=== PATIENT | female | born 1940 | race Caucasian/White ===

== ENCOUNTER 2020-01-18 20:16 | Emergency (ER) | payer MEDICARE ==
[2020-01-18] MEDS ORDERED: Sodium Chloride 0.9% 10 ML Syringe FLUSH PRN (20:27)
[2020-01-18] MEDS ORDERED: Aspirin 81 MG Tab.Chew PO ONE (20:27)
--- NOTE | 2020-01-18 20:48 | EDM.PDOC ---
ED HPI GENERAL MEDICAL PROBLEM - General Chief Complaint: Chest Pain Stated Complaint: CHEST PAIN Time Seen by Provider: 01/18/20 20:22 Source of Information: Reports: Patient History Limitations: Reports: No Limitations - History of Present Illness INITIAL COMMENTS - FREE TEXT/NARRATIVE: Patient is an 79-year-old female presenting to the emergency department with complaints of left-sided chest pain. Patient points to below her left breast when asked to localizes the pain. She states the symptoms started around 11 AM this morning. Since that time, the pain comes and goes. She complains of some shortness of breath with the pain, however she is also intermittently short of breath at baseline. She has tenderness to her chest wall when the pain is present. She denies any nausea, vomiting, or diaphoresis associated with the pain. Patient has a history of hypertension being treated with lisinopril but has no other cardiac history Patient is from [place] and visiting family locally for the next month. She states she is been under a lot of stress lately related to her dying. She denies any fever, chills, abdominal pain, nausea vomiting, or diarrhea. She has had no known sick contacts. Left Chest Pain Score (Numeric/FACES): 6 - Related Data Allergies Allergy/AdvReac Type Severity Reaction Status Date / Time No Known Allergies Allergy Verified 01/18/20 20:26 Home Meds: Home Meds Acarbose 100 mg PO DAILY 01/18/20 [History] Gabapentin [Neurontin] 300 mg PO DAILY 01/18/20 [History] Glimepiride 1 mg PO DAILY 01/18/20 [History] Lactobacillus Rhamnosus GG [Culturelle] 1 cap PO DAILY 01/18/20 [History] Metoprolol Tartrate [Lopressor] 50 mg PO DAILY 01/18/20 [History] amLODIPine Besylate [Amlodipine Besylate] 10 mg PO DAILY 01/18/20 [History] lisinopriL [Lisinopril] 40 mg PO DAILY 01/18/20 [History] metFORMIN [Glucophage] 500 mg PO DAILY 01/18/20 [History] Past Medical History HEENT History: Reports: Hard of Hearing Cardiovascular History: Reports: Hypertension Respiratory History: Reports: None 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: Neurological History: Reports: None Psychiatric History: Reports: None Endocrine/Metabolic History: Reports: Diabetes, Type II, Obesity/BMI 30+ Hematologic History: Reports: None Immunologic History: Reports: None Oncologic (Cancer) History: Reports: None Dermatologic History: Reports: None - Infectious Disease History Infectious Disease History: Reports: None - Past Surgical History HEENT Surgical History: Reports: Tonsillectomy GI Surgical History: Reports: Cholecystectomy Female Surgical History: Reports: Hysterectomy Musculoskeletal Surgical History: Reports: Hip Replacement Social & Family History - Tobacco Use Smoking Status *Q: Never Smoker - Caffeine Use Caffeine Use: Reports: Coffee, Soda, Tea - Recreational Drug Use Recreational Drug Use: No ED ROS GENERAL - Review of Systems Review Of Systems: See Below Constitutional: Reports: No Symptoms. Denies: Fever, Chills, Weakness HEENT: Reports: No Symptoms Respiratory: Reports: Shortness of Breath. Denies: Wheezing, Cough Cardiovascular: Reports: Chest Pain. Denies: Dyspnea on Exertion, Lightheadedness, Palpitations, Syncope Endocrine: Reports: No Symptoms GI/Abdominal: Reports: No Symptoms. Denies: Abdominal Pain, Diarrhea, Nausea, Vomiting : Reports: No Symptoms Musculoskeletal: Reports: Other (chest wall tenderness) Skin: Reports: No Symptoms Neurological: Reports: No Symptoms Psychiatric: Reports: No Symptoms Hematologic/Lymphatic: Reports: No Symptoms Immunologic: Reports: No Symptoms ED EXAM, GENERAL - Physical Exam Exam: See Below General Appearance: Alert, WD/WN, No Apparent Distress Respiratory/Chest: No Respiratory Distress, Lungs Clear, Normal Breath Sounds, No Accessory Muscle Use, Chest Non-Tender Cardiovascular: Normal Peripheral Pulses, Regular Rate, Rhythm, No Edema, No Gallop, No JVD, No Murmur, No Rub GI/Abdominal: Normal Bowel Sounds, Soft, Non-Tender, No Organomegaly, No Distention, No Abnormal Bruit, No Mass Neurological: Alert, Oriented, CN II-XII Intact, Normal Cognition, Normal Gait, Normal Reflexes, No Motor/Sensory Deficits Psychiatric: Normal Affect, Normal Mood Skin Exam: Warm, Dry, Intact, Normal Color, No Rash EKG INTERPRETATION EKG Date: 01/18/20 Time: 20:22 Rhythm: NSR Rate (Beats/Min): 66 [place]: LAD-Left [place] Deviation P-Wave: Present QRS: Normal ST-T: Normal QT: Normal Comparison: NA - No Prior EKG Course - Vital Signs Last Recorded V/S: Last Vital Signs Temp 96.8 F L 01/18/20 20:22 Pulse 72 01/18/20 20:22 Resp 16 01/18/20 20:22 BP 153/111 H 01/18/20 20:22 Pulse Ox 98 01/18/20 20:22 - Orders/Labs/Meds Labs: Laboratory Tests 01/18/20 01/18/20 01/18/20 Range/Units 20:30 20:30 20:30 WBC 8.21 (3.98-10.04) K/mm3 RBC 4.99 (3.98-5.22) M/mm3 Hgb 14.9 (11.2-15.7) gm/dl Hct 46.5 H (34.1-44.9) % MCV 93.2 (79.4-94.8) fl MCH 29.9 (25.6-32.2) pg MCHC 32.0 L (32.2-35.5) g/dl RDW Std Deviation 46.1 (36.4-46.3) fL Plt Count 271 (182-369) K/mm3 MPV 10.0 (9.4-12.3) fl Neut % (Auto) 51.8 (34.0-71.1) % Lymph % (Auto) 35.9 (19.3-51.7) % [place] % (Auto) 8.6 (4.7-12.5) % Eos % (Auto) 2.4 (0.7-5.8) Baso % (Auto) 0.9 (0.1-1.2) % Neut # (Auto) 4.25 (1.56-6.13) K/mm3 Lymph # (Auto) 2.95 (1.18-3.74) K/mm3 [place] # (Auto) 0.71 H (0.24-0.36) K/mm3 Eos # (Auto) 0.20 (0.04-0.36) K/mm3 Baso # (Auto) 0.07 (0.01-0.08) K/mm3 D-Dimer, Quantitative 0.65 H (0.19-0.50) mg/L Sodium 141 (136-145) mEq/L Potassium 4.3 (3.5-5.1) mEq/L Chloride 104 (98-107) mEq/L Carbon Dioxide 32 (21-32) mEq/L Anion Gap 9.3 (5-15) BUN 22 H (7-18) mg/dL Creatinine 0.9 (0.55-1.02) mg/dL Est Cr Clr Drug Dosing 35.21 mL/min Estimated GFR (MDRD) > 60 (>60) mL/min BUN/Creatinine Ratio 24.4 H (14-18) Glucose 100 (83-115) mg/dL Calcium 9.9 (8.5-10.1) mg/dL Magnesium 2.0 (1.8-2.4) mg/dl Total Bilirubin 0.4 (0.2-1.0) mg/dL AST 22 (15-37) U/L ALT 55 (14-59) U/L Alkaline Phosphatase 75 (46-116) U/L Troponin I < 0.017 (0.00-0.056) ng/mL C-Reactive Protein 0.5 (<1.0) mg/dL Total Protein 7.3 (6.4-8.2) g/dl Albumin 3.8 (3.4-5.0) g/dl Globulin 3.5 gm/dL Albumin/Globulin Ratio 1.1 (1-2) Meds: Medications Discontinued Medications Generic Name Dose Route Start Last Admin Trade Name Freq PRN Reason Stop Dose Admin Aspirin 324 mg 01/18/20 20:27 01/18/20 20:37 Aspirin PO 01/18/20 20:28 324 mg ONETIME ONE Administration Sodium Chloride 10 ml 01/18/20 20:27 01/18/20 20:37 Saline Flush FLUSH 10 ml ASDIRECTED PRN Administration Keep Vein Open - Re-Assessments/Exams Free Text/Narrative Re-Assessment/Exam: Patient is an 79-year-old female presenting to the emergency department tonight with complaints of intermittent left-sided chest pain that began around 11 AM this morning. She states that the pain comes and goes. On exam, she is tender to palpation throughout the left side of her chest wall. Lung sounds are clear to auscultation. I have ordered a CBC, CMP, d-dimer, troponin, EKG, 2 view chest x-ray, and aspirin 324 mg p.o. 01/18/20 21:18 Hematology was grossly unremarkable. D-dimer was minimally elevated at 0.65, however this would be a normal age variant for an 79-year-old female. Troponin was negative. Electrolytes were all normal. CRP was negative. EKG was negative for any acute abnormalities. Chest x-ray was normal. Pts chest discomfort has been occuring for the last 9-10 hours; therefore, if this was cardiac in nauture, we would expect an elevation in her troponin which is not present. Discussed with patient that she is likely experiencing muscle spasms of the chest wall. Recommend that she apply hot pack and use [id number] Tylenol as needed for discomfort. Recommend follow-up with her primary care provider upon returning home or return to ER for any new or worsening symptoms of concern. Discharge instructions as documented. Departure - Departure Time of Disposition: 21:38 Disposition: Home, Self-Care 01 Condition: Good Clinical Impression: Atypical chest pain Instructions: Nonspecific Chest Pain, Adult, [id number] Referrals: PCP,Not In Area [Primary Care Provider] - Forms: ED Department Discharge Additional Instructions: You were seen in the emergency department this evening for intermittent left- sided chest pain since around 11:00 this morning. Your work-up included blood work, an EKG of your heart, and a chest x-ray. Your work-up was found to be normal. Your cardiac enzyme (troponin) was at the lowest value possible indicating that the pain you are having in your chest is not coming from your heart. Your EKG showed a normal cardiac rhythm. Your chest x-ray was also found to be normal. As we discussed, the pain you are describing is likely related to spasms of the muscles in your chest wall. This explains why a your chest is tender when you push on it. Recommend that you use [id number] Tylenol as needed for discomfort. A heating pad to the area may also help to relieve the discomfort. Follow-up with your primary care provider once you return home. If you should experience any new or worsening symptoms of concern while you are visiting the area, please do not hesitate to return to the emergency department. Sepsis Event Note (ED) - Evaluation Sepsis Screening Result: No Definite Risk
--- NOTE | 2020-01-18 21:20 | CR ---
Chest: 2 views of the chest were obtained. Comparison: No prior chest imaging is available. Heart size at the upper limits of normal. Scoliosis is noted within the spine with mild degenerative change. Lungs are clear with no acute parenchymal change. Impression: 1. Findings as described above. 2. Nothing acute is appreciated. Diagnostic code #2 This report was dictated in MDT
== END 2020-01-18 21:53 | disposition home or self-care (01) ==
LOC: JD.ED 20:16
DX: R07.89 Other chest pain (principal); R06.02 Shortness of breath; I10 Essential (primary) hypertension; E11.9 Type 2 diabetes mellitus without complications; E66.9 Obesity, unspecified; Z79.84 Long term (current) use of oral hypoglycemic drugs; Z90.49 Acquired absence of other specified parts of digestive tract; Z90.710 Acquired absence of both cervix and uterus; Z79.899 Other long term (current) drug therapy; Z68.30 Body mass index [BMI] 30.0-30.9, adult
CPT/HCPCS: 36415; 71046; 80053; 83735; 84484; 85025; 85379; 86140; 93005; 99285; A9270; 93010; 99283